=== PATIENT | female | born 1950 | race Caucasian/White ===

== ENCOUNTER 2016-11-01 08:18 | Emergency (ER) | payer SELFPAY ==
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
--- NOTE | 2016-11-01 09:57 | Diagnostic Imaging Report ---
Exam: Lumbar sacral spine 5 views. HISTORY: Trauma. Findings multiple views of lumbar sacral spine reviewed. The study demonstrates the vertebral bodies of normal height with mild degenerative narrowing at of the intravertebral disc space at L5-S1 level. There is evidence for first degree retrolisthesis of L5 lumbar vertebra. Degenerative narrowing of the T12-L1 lumbar vertebra appreciated. There is no evidence of fracture dislocation. The visualized pedicles are intact. IMPRESSION: First degree retrolisthesis of the L5 lumbar vertebra Mild degenerative changes narrowing of the T12-L1 intervertebral disc space. If clinically indicated MRI examination might helpful.
--- NOTE | 2016-11-01 09:58 | Diagnostic Imaging Report ---
Exam: Cervical spine 5 views. HISTORY: Trauma Findings: Multiple views of cervical spine reviewed. The study demonstrates a fusion of the C4-C5 vertebral bodies. There is no evidence for fracture dislocation subluxation. No prevertebral soft tissue swelling is noted. The odontoid process is intact. The posterior elements are normal. IMPRESSION: 1. Fusion of the C4-C5 vertebral bodies otherwise unremarkable examination mild degenerative changes. 2. Facet arthropathy.
== END 2016-11-01 11:00 | disposition home or self-care (01) ==
LOC: ER 08:18
DX: S16.1XXA Strain of muscle, fascia and tendon at neck level, initial encounter (principal); S39.012A Strain of muscle, fascia and tendon of lower back, initial encounter; X58.XXXA Exposure to other specified factors, initial encounter; Y93.89 Activity, other specified; Y92.811 Bus as the place of occurrence of the external cause; Y99.8 Other external cause status
CPT/HCPCS: 99284; 96372; 72050; 72110; J1885; Z7502